=== PATIENT | female | born 1965 | race African-American/Black ===

== ENCOUNTER 2019-01-17 22:35 | Emergency (ER) | payer OTHER ==
[~2019-01-17] VITALS: Ht 167.6 cm; Wt 80.7 kg
[~2019-01-17 22:35] MED LIST: FERR325T18 PO
[2019-01-17 22:38] VITALS: BP 127/73
[2019-01-18] MEDS ORDERED: APIXABAN 5 MG TABLET PO ONE
[2019-01-18] MEDS ORDERED: ASPIRIN 325 MG TABLET ONE (00:20)
[2019-01-18] MEDS: ASPIRIN 325 MG TABLET PO PRN (00:25)
--- NOTE | 2019-01-18 00:25 | NUR ---
pt medicated per mar.
== END 2019-01-18 00:39 | disposition home or self-care (01) ==
LOC: ED 23:59
DX: I80.02 Phlebitis and thrombophlebitis of superficial vessels of left lower extremity (principal); I87.8 Other specified disorders of veins; L30.9 Dermatitis, unspecified
CPT/HCPCS: 99284